=== PATIENT | female | born 1950 | race Hispanic/Latino ===

== ENCOUNTER 2023-02-26 11:36 | Emergency (ER) | payer OTHER, MEDICARE ==
[~2023-02-26] VITALS: Ht 154.9 cm; Wt 68.0 kg
[~2023-02-26 11:36] MED LIST: AMOX-426 PO; ASPI-1197 PO; CARV25TA PO; DAPA10TA PO; ERGO50CA PO; LEVO50CA4 PO; LEVO50TA4 PO; LISI20TA24 PO; MECL-302 PO; METF-446 PO; PIOG45TA64 PO; PROG100C11 PO; SEMA14TA2 PO; SOLI10TA7 PO
[2023-02-26 12:27] LABS: BASOPHILS # (AUTO) 0.04 K/uL (0.00-0.20); BASOPHILS % (AUTO) 0.8 % (0.0-5.0); EOSINOPHILS # (AUTO) 0.12 K/uL (0.00-0.70); EOSINOPHILS % (AUTO) 2.4 % (0.0-8.0); HEMATOCRIT 37.2 % (36-48); IMMATURE GRANULOCYTE ABSOLUTE 0.02 K/uL (0-1); LYMPHOCYTES # (AUTO) 1.1 K/uL (1.0-4.8); LYMPHOCYTES % (AUTO) 20.6 % (21.0-51.0); MEAN CORPUSCULAR HGB CONC 32.5 g/dL (32.0-36.0); MEAN CORPUSCULAR VOLUME 95.4 fL (79-99); MONOCYTES # (AUTO) 0.4 K/uL (0.1-1.0); MONOCYTES % (AUTO) 7.5 % (3.0-13.0); NEUTROPHILS # (AUTO) 3.5 K/uL (1.8-7.7); NEUTROPHILS % (AUTO) 68.3 % (40.0-77.0); PLATELET COUNT (AUTO) 220 K/uL (130-400); RED CELL DISTRIBUTION WIDTH 13.1 % (11.0-15.5); WHITE BLOOD COUNT (AUTO) 5.1 K/uL (4.8-10.8)
[2023-02-26 12:58] LABS: ALBUMIN 3.7 g/dL (3.5-5.0); BILIRUBIN,TOTAL 0.3 mg/dL (0.2-1.0); CREATININE 1.7 mg/dL (0.5-1.5); MAGNESIUM 1.9 mg/dL (1.80-2.40); POTASSIUM 4.8 mmol/L (3.5-5.1); TOTAL PROTEIN, SERUM 7.5 g/dL (6.0-8.3)
[2023-02-26 14:43] VITALS: BP 128/79; PULSE 84; RESP 16; O2SAT 99
== END 2023-02-26 14:52 | disposition home or self-care (01) ==
LOC: EDH 11:36
DX: H81.399 Other peripheral vertigo, unspecified ear (principal); E11.9 Type 2 diabetes mellitus without complications; E78.00 Pure hypercholesterolemia, unspecified; I10 Essential (primary) hypertension; E03.9 Hypothyroidism, unspecified; Z79.82 Long term (current) use of aspirin; Z79.84 Long term (current) use of oral hypoglycemic drugs; Z79.890 Hormone replacement therapy; Z79.899 Other long term (current) drug therapy
CPT/HCPCS: 36415; 70450; 80053; 83735; 85025; 93005

== ENCOUNTER 2023-09-02 06:02 | Day surgery (SDC) | payer OTHER, MEDICARE ==
[2023-09-02] VITALS (11 sets, daily range): BP systolic 121–167; BP diastolic 58–69; PULSE 58–69; RESP 14–17
[~2023-09-02 06:02] MED LIST changes: -AMOX-426 PO; -ERGO50CA PO; -LEVO50TA4 PO; -LISI20TA24 PO; -PROG100C11 PO; +VALS160T29 PO
[2023-09-02] MEDS ORDERED: MECL-302 PO (06:37)
[2023-09-02] MEDS: 0.9%NACL 1000ML 1,000 ML IV ONE (06:41)
[2023-09-02] MEDS ORDERED: PROPOFOL 10 MG/ML 20ML VIAL IV ONE (08:12)
== END 2023-09-02 09:30 | disposition home or self-care (01) ==
LOC: ENDO 06:02 → DAH 06:02 → ENDO 09:30
PROVIDERS: ATTEND Internal Medicine
DX: Z12.11 Encounter for screening for malignant neoplasm of colon (principal); K62.1 Rectal polyp; I10 Essential (primary) hypertension; E11.9 Type 2 diabetes mellitus without complications; E78.5 Hyperlipidemia, unspecified; E03.9 Hypothyroidism, unspecified; G47.00 Insomnia, unspecified; M19.90 Unspecified osteoarthritis, unspecified site; E66.9 Obesity, unspecified; Z68.31 Body mass index [BMI] 31.0-31.9, adult; Z82.49 Family history of ischemic heart disease and other diseases of the circulatory system; Z79.84 Long term (current) use of oral hypoglycemic drugs; Z79.82 Long term (current) use of aspirin; Z79.899 Other long term (current) drug therapy; Z79.890 Hormone replacement therapy
CPT/HCPCS: 45380; 82948 ×2; J7030; J2704; A4620; J3490